=== PATIENT | female | born 1955 | race Asian ===

== ENCOUNTER 2016-08-08 19:27 | Emergency (ER) | payer BC, OTHER ==
[2016-08-08 20:30] VITALS: RESP 12
[2016-08-08] MEDS ORDERED: cloNIDine HCL 0.2 MG TAB PO STA (20:32)
--- NOTE | 2016-08-08 20:33 | ED ---
General Adult HPI - General Chief complaint: Recheck/Abnormal Lab/Rx Stated complaint: High BP Time Seen by Provider: 08/08/16 19:43 Source: patient, RN notes reviewed, old records reviewed Mode of arrival: ambulatory Limitations: no limitations - History of Present Illness Initial comments: This is a 60-year-old female ER for evaluation. The patient comes in via for evaluation of elevated blood pressure. Patient states she is happy to take her blood pressure earlier today noted to be high. Patient has history of high blood pressure, does take lisinopril patient took lisinopril prior to arrival. Patient's blood pressure during towards systolic currently 180 systolic. Patient denies any complaints, no headache chest pain shortness of breath or abdominal pain. - Related Data Home Medications Medication Instructions Recorded Confirmed Lisinopril [Prinivil] 10 mg PO BID 03/14/15 08/08/16 Pyridostigmine [place] [Mestinon] 8 tab PO DAILY 03/14/15 08/08/16 Ascorbic Acid [Vitamin C] 500 mg PO DAILY 08/08/16 08/08/16 Cyanocobalamin [Vitamin B-12] 500 mcg PO DAILY 08/08/16 08/08/16 Multivitamins, Thera [Multivitamin] 1 tab PO DAILY 08/08/16 08/08/16 Previous Rx's Medication Instructions Recorded Hydrochlorothiazide [Hydrodiuril] 25 mg PO DAILY #30 tab 08/08/16 Allergies Allergy/AdvReac Type Severity Reaction Status Date / Time No Known Allergies Allergy Verified 08/08/16 19:54 Review of Systems ROS Statement: Those systems with pertinent positive or pertinent negative responses have been documented in the HPI. ROS Other: All systems not noted in ROS Statement are negative. Past Medical History Past Medical History: Hypertension Additional Past Medical History / Comment(s): Myasthenia Gravis History of Any Multi-Drug Resistant Organisms: None Reported Past Surgical History: No Surgical Hx Reported Past Psychological History: No Psychological Hx Reported Smoking Status: Never smoker Past Alcohol Use History: None Reported Past Drug Use History: None Reported General Exam Limitations: no limitations General appearance: alert, in no apparent distress Head exam: Present: atraumatic, normocephalic, normal inspection Eye exam: Present: normal appearance, PERRL, EOMI. Absent: scleral icterus, conjunctival injection, periorbital swelling ENT exam: Present: normal exam, mucous membranes moist Neck exam: Present: normal inspection. Absent: tenderness, meningismus, lymphadenopathy Respiratory exam: Present: normal lung sounds bilaterally. Absent: respiratory distress, wheezes, rales, rhonchi, stridor Cardiovascular Exam: Present: regular rate, normal rhythm, normal heart sounds. Absent: systolic murmur, diastolic murmur, rubs, gallop, clicks GI/Abdominal exam: Present: soft, normal bowel sounds. Absent: distended, tenderness, guarding, rebound, rigid Extremities exam: Present: normal inspection, full ROM, normal capillary refill. Absent: tenderness, pedal edema, joint swelling, calf tenderness Back exam: Present: normal inspection Neurological exam: Present: alert, oriented X3, CN II-XII intact Psychiatric exam: Present: normal affect, normal mood Skin exam: Present: warm, dry, intact, normal color. Absent: rash Course Vital Signs 08/08/16 08/08/16 19:37 20:29 Temperature 97.3 F L Pulse Rate 73 65 Respiratory 18 12 Rate Blood Pressure 203/79 169/79 O2 Sat by Pulse 98 98 Oximetry - Reevaluation(s) Reevaluation #1: 08/08/16 20:53 Patient remains symptomatic no headache chest pain dizziness or is rather abdominal pain Medical Decision Making - Medical Decision Making 60 female here with hypertension, history of high blood pressure, 2 blood pressure Ines suicide come to ER for evaluation. Patient's blood pressures been anywhere from 200 to 180s systolic, improved now prior to discharge, will start on hydrochlorothiazide to follow with Dr. Carreno Clinical Impression: Hypertension, Uncontrolled hypertension Disposition: HOME SELF-CARE Condition: Good Instructions: Hypertension (ED) Prescriptions: Hydrochlorothiazide [Hydrodiuril] 25 mg PO DAILY #30 tab Referrals: Geneva Fam MD [Primary Care Provider] - 1-2 days
[2016-08-08 21:38] VITALS: BP 119/72; PULSE 75; TEMP 96.8
== END 2016-08-08 21:40 | disposition home or self-care (01) ==
LOC: EC 19:27
DX: I10 Essential (primary) hypertension (principal); Z79.899 Other long term (current) drug therapy; G70.00 Myasthenia gravis without (acute) exacerbation
CPT/HCPCS: 99283

== ENCOUNTER 2016-12-21 17:29 | Emergency (ER) | payer BC, OTHER ==
[2016-12-21 18:15] VITALS: PULSE 78; RESP 18; TEMP 98.1
--- NOTE | 2016-12-21 19:30 | ED ---
Recheck HPI - General Chief Complaint: Recheck/Abnormal Lab/Rx Stated Complaint: HTN Time Seen by Provider: 12/21/16 19:13 Source: patient, RN notes reviewed Mode of arrival: ambulatory Limitations: no limitations - History of Present Illness Initial Comments: Patient is 61-year-old female presents to the emergency room for evaluation of high blood pressure. Patient states she has a history of hypertension. Patient states she recently had her lisinopril increased from 10 mg daily to 25 mg per day. Patient states she wasn't sure why it was increased and has not contacted her primary care provider about it. Patient states that she has not began taking her increased dose and been continuing to take 10 mg a day. Patient states around 5 PM this afternoon, her blood pressure was 180/110. Patient states she was having a headache and slight dizziness. Patient's blood pressure on arrival 178/80. Patient denies any current headache or dizziness. Patient denies chest pain or shortness of breath. Patient has abdominal pain. Patient's nausea vomiting. Patient denies bilateral leg pain or swelling. Patient states she thought she should be evaluated for elevated blood pressure. - Related Data Home Medications Medication Instructions Recorded Confirmed Lisinopril [Prinivil] 10 mg PO BID 03/14/15 08/08/16 Pyridostigmine [place] [Mestinon] 8 tab PO DAILY 03/14/15 08/08/16 Ascorbic Acid [Vitamin C] 500 mg PO DAILY 08/08/16 08/08/16 Cyanocobalamin [Vitamin B-12] 500 mcg PO DAILY 08/08/16 08/08/16 Multivitamins, Thera [Multivitamin] 1 tab PO DAILY 08/08/16 08/08/16 Previous Rx's Medication Instructions Recorded Hydrochlorothiazide [Hydrodiuril] 25 mg PO DAILY #30 tab 08/08/16 Allergies Allergy/AdvReac Type Severity Reaction Status Date / Time No Known Allergies Allergy Verified 12/21/16 18:15 Review of Systems ROS Statement: Those systems with pertinent positive or pertinent negative responses have been documented in the HPI. ROS Other: All systems not noted in ROS Statement are negative. Past Medical History Past Medical History: Hyperlipidemia, Hypertension Additional Past Medical History / Comment(s): Myasthenia Gravis History of Any Multi-Drug Resistant Organisms: None Reported Past Surgical History: No Surgical Hx Reported Past Psychological History: No Psychological Hx Reported Smoking Status: Never smoker Past Alcohol Use History: None Reported Past Drug Use History: None Reported General Exam - General Exam Comments Initial Comments: Sitting in exam room, no acute distress. Limitations: no limitations General appearance: alert, in no apparent distress Head exam: Present: atraumatic, normocephalic, normal inspection Eye exam: Present: normal appearance ENT exam: Present: normal exam Neck exam: Present: normal inspection Respiratory exam: Present: normal lung sounds bilaterally. Absent: respiratory distress Cardiovascular Exam: Present: regular rate, normal rhythm, normal heart sounds GI/Abdominal exam: Present: soft, normal bowel sounds. Absent: distended, tenderness, guarding, rebound, rigid Extremities exam: Present: normal inspection Back exam: Present: normal inspection Neurological exam: Present: alert, oriented X3, CN II-XII intact, normal gait Psychiatric exam: Present: normal affect, normal mood Skin exam: Present: warm, dry, intact, normal color. Absent: rash Course Vital Signs 12/21/16 12/21/16 18:12 19:29 Temperature 98.1 F Pulse Rate 78 Respiratory 18 Rate Blood Pressure 178/80 160/80 O2 Sat by Pulse 98 Oximetry Medical Decision Making - Medical Decision Making Patient is 61-year-old female presents emergency room for evaluation of blood pressure recheck. Patient's blood pressure on arrival 178/80. Patient's blood pressure recheck 160/80. Discussed with patient that if she continues to have elevated blood pressure when she gets home to take another 10 mg lisinopril. Advised patient to begin taking 25 mg of lisinopril tomorrow as prescribed. Advised patient to follow-up with her primary care provider on Saturday if she has any questions regarding her blood pressure medications. Patient denies any symptoms at this time. Patient states she understands everything that was discussed with her. Return parameters discussed. Case discussed with Dr. Borrero. Disposition Clinical Impression: Blood pressure check Disposition: HOME SELF-CARE Condition: Good Instructions: Hypertension (ED) Additional Instructions: Take blood pressure medications as prescribed. Please follow up with primary care provider on Saturday. If any new symptom arises or symptoms worsen, return to ER as soon as possible. Referrals: Geneva Fam MD [Primary Care Provider] - 1-2 days Time of Disposition: 19:33
[2016-12-21 19:33] VITALS: BP 160/80
== END 2016-12-21 20:01 | disposition home or self-care (01) ==
LOC: EC 17:29
DX: I10 Essential (primary) hypertension (principal); G70.9 Myoneural disorder, unspecified; Z79.899 Other long term (current) drug therapy
CPT/HCPCS: 99283

== ENCOUNTER 2016-12-28 09:51 | Day surgery (SDC) | payer BC, OTHER ==
[2016-12-27 10:24] VITALS: BMI 22.6
[~2016-12-28 09:51] MED LIST: LACTATED RINGERS 1,000 ML IV SCH
[2016-12-28 10:38] VITALS: TEMP 98.1
[2016-12-28] MEDS ORDERED: LIDOCAINE 1% 20 ML VIAL (10MG/ML) FOR IV START INTRADERMA ONE (10:49)
[2016-12-28 10:59] LABS: Glucose,Whole Blood 87 mg/dL (75-99)
[2016-12-28] MEDS ORDERED: PROPOFOL 10 MG/ML 20 ML VIAL IV ONE (11:01)
--- NOTE | 2016-12-28 11:22 | P.PCN ---
Date of Procedure: 12/28/16 Preoperative Diagnosis: Postoperative Diagnosis: Procedure(s) Performed: BRIEF HISTORY: Patient is a 61-year-old pleasant 8 female, scheduled for an elective colonoscopy as a part of screening for colorectal neoplasia. She was recently noted to have a Hemoccult positive stool. PROCEDURE PERFORMED: Colonoscopy. PREOPERATIVE DIAGNOSIS: Screening for colon cancer/Hemoccult positive stool. IV sedation per Anesthesia. PROCEDURE: After informed consent was obtained, the patient, was brought into the endoscopy unit. IV sedation was administered by Anesthesia under continuous monitoring. Digital rectal examination was normal. Initially the Olympus CF- 160 flexible video colonoscope was then inserted in the rectum, gradually advanced into the cecum without any difficulty. Careful examination was performed as the scope was gradually being withdrawn. Ileocecal valve and the appendiceal orifice were visualized and appeared normal. Prep was excellent. Mucosa of the cecum, ascending colon, transverse colon, descending colon, sigmoid colon, and rectum appeared normal. Retroflexion was performed in the rectum and no lesions were seen. The patient tolerated the procedure well. IMPRESSION: Normal-appearing colon from rectum to cecum with no evidence of colorectal neoplasia.. RECOMMENDATIONS: Findings of this examination were discussed with the patient as well as her family. She was advised to have a repeat screening colonoscopy in 10 years.. Implants: Indications for Procedure: Operative Findings: Description of Procedure:
[2016-12-28 12:08] VITALS: BP 127/66; PULSE 70; RESP 18
== END 2016-12-28 12:26 | disposition home or self-care (01) ==
LOC: ORWHC2ENDO 09:51
PROVIDERS: ATTEND Internal Medicine Gastroenterology
DX: R19.5 Other fecal abnormalities (principal); I10 Essential (primary) hypertension; J45.909 Unspecified asthma, uncomplicated; F41.9 Anxiety disorder, unspecified; G70.00 Myasthenia gravis without (acute) exacerbation; K21.9 Gastro-esophageal reflux disease without esophagitis; Z79.52 Long term (current) use of systemic steroids; Z79.899 Other long term (current) drug therapy
CPT/HCPCS: 45378; J2704

== ENCOUNTER → 2017-09-13 | Outpatient (CLI) | payer BC, OTHER ==
--- NOTE | 2017-09-14 14:58 | CT ---
EXAMINATION TYPE: CT abdomen pelvis w con DATE OF EXAM: 09/13/2017 COMPARISON: NONE HISTORY: LLQ pain CT DLP: 942 mGycm CONTRAST: CT scan of the abdomen and pelvis is performed with Oral Contrast and with IV Contrast, patient injec olga with 100ml mL of Omnipaque 300. FINDINGS: LUNG BASES-: No visible nodule. No infiltrate. LIVER/GB: No calcified gallstones. No space occupying hepatic lesion. Biliary tree is of normal ca liber. PANCREAS: No inflammation. No distinct mass. SPLEEN: No splenic enlargement. No lesion seen. ADRENALS: No nodule. No thickening. KIDNEYS/BLADDER: No hydronephrosis. No nephrolithiasis. No distinct renal mass. Urinary bladder i s poorly distended. BOWEL: Normal appendix. Normal bowel caliber. No inflammation. GENITAL ORGANS: No gross abnormality. LYMPH NODES: No greater than 1cm abdominal or pelvic lymph nodes are appreciated. AORTA: No significant abnormality. OSSEOUS STRUCTURES: Generative changes L5-S1. OTHER: No significant additional abnormality is seen. IMPRESSION: 1. No significant abnormality to account for the patient's symptoms.
== END | disposition home or self-care (01) ==
LOC: RADCTMAIN 18:06
PROVIDERS: ATTEND Internal Medicine
DX: R10.32 Left lower quadrant pain (principal); R10.84 Generalized abdominal pain
CPT/HCPCS: 74177; Q9967

== ENCOUNTER → 2018-08-20 | Outpatient (CLI) | payer OTHER ==
--- NOTE | 2018-08-20 15:43 | US ---
EXAMINATION TYPE: US kidneys/renal and bladder DATE OF EXAM: 08/20/2018 COMPARISON: CT 09/13/17 CLINICAL HISTORY: R10.9 right flank pain. EXAM MEASUREMENTS: Right Kidney: 10.5 x 5.0 x 4.3 cm Left Kidney: 10.3 x 4.9 x 4.7 cm Post Void Residual Volume: 9.6 mL Right Kidney: No hydronephrosis or masses seen Left Kidney: No hydronephrosis or masses seen Bladder: wnl Bilateral Jets seen: Yes Normal Post Void Residual: Yes IMPRESSION: Normal renal ultrasound.
== END | disposition home or self-care (01) ==
LOC: RADUSWWP 14:48
PROVIDERS: ATTEND Internal Medicine
DX: R10.9 Unspecified abdominal pain (principal)
CPT/HCPCS: 76770

== ENCOUNTER → 2019-01-20 | Outpatient (CLI) | payer OTHER ==
--- NOTE | 2019-01-20 13:12 | XR ---
EXAMINATION TYPE: XR chest 2V DATE OF EXAM: 01/20/2019 COMPARISON: Prior chest x-ray 09/18/2018 HISTORY: Cough TECHNIQUE: Frontal and lateral views of the chest are obtained. FINDINGS: Prominent lung volumes suggest underlying COPD. Aorta is dense. Heart size within normal li mits. There is no focal air space opacity, pleural effusion, or pneumothorax seen. The cardiac silho uette size is within normal limits. Suspect there is a spinal curvature. There is eventration of th e left hemidiaphragm. The osseous structures are intact. IMPRESSION: No acute cardiopulmonary process.
== END | disposition home or self-care (01) ==
LOC: RADXRMAIN 12:23
PROVIDERS: ATTEND Internal Medicine
DX: R05 Cough (principal)
CPT/HCPCS: 71046

== ENCOUNTER → 2019-03-05 | Outpatient (CLI) | payer OTHER ==
[2019-03-05 16:09] LABS: ALT 89 U/L (8-44); AST 78 U/L (13-35); African American GFR (CKD) 129.4 (60.0-200.0); Albumin/Globulin Ratio 1.71 (1.60-3.17); Alkaline Phosphatase 83 U/L (41-126); Calcium 10.5 mg/dL (8.7-10.3); Carbon Dioxide 27.7 mmol/L (21.6-31.8); Chloride 108 mmol/L (96-109); Globulin 2.4 g/dL (1.6-3.3); Glucose 99 mg/dL (70-110); Non-African American GFR(CKD) 111.6 (60.0-200.0); Potassium 3.7 mmol/L (3.5-5.5); Prolactin 12.7 ng/mL (2.8-29.2); Sodium 144 mmol/L (135-145); Total Bilirubin 0.5 mg/dL (0.2-1.2); Total Protein 6.5 g/dL (6.2-8.2)
[2019-03-05 18:42] LABS: ACTH 12.7 pg/mL (0.00-45.99)
== END | disposition home or self-care (01) ==
LOC: LABWHC1 09:22
PROVIDERS: ATTEND Internal Medicine Endocrinology, Diabetes & Metabolism
DX: E05.90 Thyrotoxicosis, unspecified without thyrotoxic crisis or storm (principal); R53.83 Other fatigue
CPT/HCPCS: 36415; 80053; 82024; 82533; 84146; 84439; 84443; 84445; 84480

== ENCOUNTER → 2019-03-19 | Outpatient (CLI) | payer OTHER ==
[2019-03-20 13:49] LABS: Smooth Muscle Antibody 9 UNITS (<20)
== END | disposition home or self-care (01) ==
LOC: LABWHC1 13:56
PROVIDERS: ATTEND Psychiatry & Neurology Neurology
DX: G70.00 Myasthenia gravis without (acute) exacerbation (principal)
CPT/HCPCS: 36415; 83516; 83519

== ENCOUNTER → 2019-04-20 | Outpatient (CLI) | payer OTHER ==
[2019-04-20 16:29] LABS: T4, Free (Free Thyroxine) 0.3 ng/dL (0.80-1.80)
== END | disposition home or self-care (01) ==
LOC: LABWHC1 11:34
PROVIDERS: ATTEND Internal Medicine Endocrinology, Diabetes & Metabolism
DX: E05.90 Thyrotoxicosis, unspecified without thyrotoxic crisis or storm (principal)
CPT/HCPCS: 36415; 84439; 84443; 84480

== ENCOUNTER → 2019-05-15 | Outpatient (CLI) | payer OTHER ==
--- NOTE | 2019-05-15 13:10 | US ---
EXAMINATION TYPE: US abdomen limited DATE OF EXAM: 05/15/2019 COMPARISON: NONE CLINICAL HISTORY: R94.5 Abnormal results of liver function studies. EXAM MEASUREMENTS: Liver Length: 12.9 cm Gallbladder Wall: 0.2 cm CBD: 0.2 cm Right Kidney: 10.5 x 3.0 4.7 cm Pancreas: Obscured by bowel gas Liver: wnl Gallbladder: echogenic foci fundal, possible non shadowing stone versus sessile polyp, does not appe ar mobile Evidence for sonographic Go's sign: CBD: wnl Right Kidney: wnl IMPRESSION: 1. Homogeneous echotexture throughout the liver despite abnormal liver enzymes. 2. Sessile polyp versus nonshadowing small calculi in the gallbladder fundus. This measures approxima tely 4 mm. Annual surveillance with abdominal ultrasound is recommended for polyps of this size.
== END | disposition home or self-care (01) ==
LOC: RADUSWWP 11:42
PROVIDERS: ATTEND Internal Medicine
DX: R94.5 Abnormal results of liver function studies (principal)
CPT/HCPCS: 76705

== ENCOUNTER → 2019-06-01 | Outpatient (CLI) | payer OTHER ==
--- NOTE | 2019-06-02 11:58 | MM ---
Reason for exam: screening (asymptomatic). Last mammogram was performed 14 years ago. History: Patient is postmenopausal and had first child at age 33. Physical Findings: A clinical breast exam by your physician is recommended on an annual basis and results should be correlated with mammographic findings. MG Screening Mammo w CAD Bilateral CC and MLO view(s) were taken. Prior study comparison: March 01, 2017, mammogram. August 01, 2015, mammogram. May 18, 2005, bilateral screening mammogram w/CAD. July 08, 2003, left breast special view mammogram. The breast tissue is heterogeneously dense. This may lower the sensitivity of mammography. Benign appearing stable calcifications in the right breast. No suspicious abnormality. No significant changes when compared with prior studies. ASSESSMENT: Benign, BI-RAD 2 RECOMMENDATION: Routine screening mammogram of both breasts in 1 year.
== END | disposition home or self-care (01) ==
LOC: RADMAMWWP 11:03
PROVIDERS: ATTEND Internal Medicine
DX: Z12.31 Encounter for screening mammogram for malignant neoplasm of breast (principal)
CPT/HCPCS: 77067

== ENCOUNTER → 2019-06-08 | Outpatient (CLI) | payer OTHER ==
[2019-06-08 18:22] LABS: African American GFR (CKD) 107.6 (60.0-200.0); Albumin 4.4 g/dL (3.80-4.90); Albumin/Globulin Ratio 1.76 (1.60-3.17); Anion Gap 11.3 mmol/L (4.00-12.00); BUN/Creat Ratio 17.14 Ratio (12.00-20.00); Calcium 9.5 mg/dL (8.7-10.3); Carbon Dioxide 25.7 mmol/L (21.6-31.8); Globulin 2.5 g/dL (1.6-3.3); Potassium 4.2 mmol/L (3.5-5.5); Total Bilirubin 0.7 mg/dL (0.2-1.2); Total Protein 6.9 g/dL (6.2-8.2)
[2019-06-08 18:52] LABS: T4, Free (Free Thyroxine) 0.8 ng/dL (0.80-1.80)
== END | disposition home or self-care (01) ==
LOC: LABWHC1 11:23
PROVIDERS: ATTEND Internal Medicine Endocrinology, Diabetes & Metabolism
DX: E05.00 Thyrotoxicosis with diffuse goiter without thyrotoxic crisis or storm (principal)
CPT/HCPCS: 36415; 80053; 84439; 84443; 84445; 84480

== ENCOUNTER → 2019-08-31 | Outpatient (CLI) | payer OTHER ==
[2019-08-31 16:04] LABS: T4, Free (Free Thyroxine) 1.1 ng/dL (0.80-1.80)
== END ==
LOC: LABWHC1 11:16
PROVIDERS: ATTEND Internal Medicine Endocrinology, Diabetes & Metabolism
DX: E05.90 Thyrotoxicosis, unspecified without thyrotoxic crisis or storm (principal)
CPT/HCPCS: 36415; 84439; 84443; 84480

== ENCOUNTER → 2019-10-06 | Outpatient (CLI) | payer OTHER ==
[2019-10-06 17:35] LABS: T4, Free (Free Thyroxine) 1.2 ng/dL (0.80-1.80)
== END | disposition home or self-care (01) ==
LOC: LABWHC1 11:15
PROVIDERS: ATTEND Internal Medicine Endocrinology, Diabetes & Metabolism
DX: E05.90 Thyrotoxicosis, unspecified without thyrotoxic crisis or storm (principal)
CPT/HCPCS: 36415; 84439; 84443; 84480

== ENCOUNTER → 2020-02-17 | Outpatient (CLI) | payer OTHER ==
[2020-02-18 00:50] LABS: T4, Free (Free Thyroxine) 1.2 ng/dL (0.80-1.80)
== END | disposition home or self-care (01) ==
LOC: LABWHC1 13:09
PROVIDERS: ATTEND Internal Medicine Endocrinology, Diabetes & Metabolism
DX: E05.90 Thyrotoxicosis, unspecified without thyrotoxic crisis or storm (principal)
CPT/HCPCS: 36415; 84439; 84443; 84480

== ENCOUNTER → 2020-03-28 | Outpatient (CLI) | payer OTHER ==
[2020-03-28 19:29] LABS: T4, Free (Free Thyroxine) 1.2 ng/dL (0.80-1.80)
== END | disposition home or self-care (01) ==
LOC: LABWHC1 13:11
PROVIDERS: ATTEND Internal Medicine Endocrinology, Diabetes & Metabolism
DX: E05.90 Thyrotoxicosis, unspecified without thyrotoxic crisis or storm (principal)
CPT/HCPCS: 36415; 84439; 84443; 84480

== ENCOUNTER → 2020-12-28 | Outpatient (CLI) | payer OTHER ==
--- NOTE | 2020-12-29 11:14 | MM ---
Reason for exam: screening (asymptomatic). Last mammogram was performed 1 year and 7 months ago. History: Patient is postmenopausal and had first child at age 33. Physical Findings: A clinical breast exam by your physician is recommended on an annual basis and results should be correlated with mammographic findings. MG Screening Mammo w CAD Bilateral CC and MLO view(s) were taken. Prior study comparison: June 01, 2019, bilateral MG screening mammo w CAD. March 01, 2017, mammogram. The breast tissue is heterogeneously dense. This may lower the sensitivity of mammography. There are benign appearing round calcifications bilaterally. ASSESSMENT: Benign, BI-RAD 2 RECOMMENDATION: Routine screening mammogram of both breasts in 1 year.
--- NOTE | 2020-12-29 15:43 | BD ---
EXAMINATION TYPE: Axial Bone Density DATE OF EXAM: 12/28/2020 COMPARISON: 09.24.2014 CLINICAL HISTORY: 65 YR OLD FEMALE.....ICD-10 CODE: M81.0 DISORDER OF BONE, postmenopausal female Height: 59.7 Weight: 109 FRAX RISK QUESTIONS: Glucocorticoids (More than 3mos): YES (Ex: prednisone, prednisolone, methylprednisolone, dexamethasone, and hydrocortisone). Secondary Osteoporosis: YES 3. Menopause before 45: YES RISK FACTORS HISTORY OF: Postmenopausal woman: 45...? SPEECH IMPEDIMENT Hyperparathyroidism: UNKNOWN Adrenal Insufficiency: UNKNOWN MEDICATIONS: Prednisone or other steroids: YES, ASTHMA FOR YRS Thyroid Medications: YES, SYNTHROID, FOR YRS Osteoporosis Medications: FOSAMAX, FOR YRS Additional Medications: BP MEDS, REFLUX MEDS, MAIS GRAVIS MEDS, VIT D AND MULTIVITAMIN, Additional History: MAIS GRAVIS, REFLUX, HYPERTENSION, ASTHMA, OSTEOPOROSIS, THYROID EXAM MEASUREMENTS: Bone mineral densitometry was performed using the [employer] System. Bone mineral density as measured about the Lumbar spine is: ----- L1-L4(G/cm2): 1.036 T Score Values are as follows: ----- L1: -2.3 ----- L2: -2.4 ----- L3: -1.3 ----- L4: 0.3 ----- L1-L4: -1.2 Bone mineral density has: Increased 4.9% SINCE LAST STUDY....09.24.2014 Bone mineral density about the R hip (g/cm2): 0.771 Bone mineral density about the L hip (g/cm2): 0.782 T Score values are as follows: -----R Neck: -2.3 -----L Neck: -2.5 -----R Total: -1.9 -----L Total: -1.8 Bone mineral density has: Decreased -1.0 % SINCE LAST STUDY.....09.24.2014 FRAX%s: THERE IS A 11.0% CHANCE FOR A MAJOR OSTEOPOROTIC FX AND A 2.8% FOR HIP.....PROBABILITY FOR FX IN 10 YRS TIME IMPRESSION: Osteopenia (T Score between -2.5 and -1) remains present. There remains slightly increased risk of fracture and the patient may be considered for treatment. Re-Screen 2-5 years. NOTE: T-SCORE=SD OF THE YOUNG ADULT MEAN.
== END | disposition home or self-care (01) ==
LOC: RADBDWWP 12:01
PROVIDERS: ATTEND Internal Medicine
DX: Z12.31 Encounter for screening mammogram for malignant neoplasm of breast (principal); Z13.820 Encounter for screening for osteoporosis; M85.89 Other specified disorders of bone density and structure, multiple sites; Z78.0 Asymptomatic menopausal state
CPT/HCPCS: 77067; 77080

== ENCOUNTER → 2021-02-03 | Outpatient (CLI) | payer OTHER ==
--- NOTE | 2021-02-03 15:06 | US ---
EXAMINATION TYPE: US kidneys/renal and bladder DATE OF EXAM: 02/03/2021 COMPARISON: US 2019 08/20/2018 CLINICAL HISTORY: R10.9 SHAHEEN FLANK PAIN. EXAM MEASUREMENTS: Right Kidney: 10.2 x 4.2 x 4.5cm 101 mL (117 mL volume previously). Left Kidney: 8.9 x 4.0 x 4.4cm this is small. 82 mL volume (123 mL volume previously). Right Kidney: No hydronephrosis or shadowing renal calculi seen Left Kidney: No hydronephrosis or shadowing renal calculi seen Bladder: wnl Bilateral Jets seen: no No hydronephrosis or shadowing renal calculi. The urinary bladder is anechoic. The ureteral jets are not visualized. IMPRESSION: 1. No hydronephrosis or shadowing renal calculi. 2. Small left kidney. 82 mL volume. Previous volume was 123.5 mL. 3. Bilateral ureteral jets are not visualized.
== END | disposition home or self-care (01) ==
LOC: RADUSWWP 14:13
PROVIDERS: ATTEND Internal Medicine
DX: N27.0 Small kidney, unilateral (principal); R10.9 Unspecified abdominal pain
CPT/HCPCS: 76770

== ENCOUNTER → 2021-04-28 | Outpatient (CLI) | payer OTHER ==
--- NOTE | 2021-04-28 16:21 | XR ---
EXAMINATION TYPE: XR thoracic spine complete DATE OF EXAM: 04/28/2021 CLINICAL HISTORY: Mid back pain. TECHNIQUE: Frontal, lateral, and swimmer's view of thoracic spine are obtained. COMPARISON: None. FINDINGS: Thoracic spine show levoconvex scoliosis centered mid thoracic spine without evidence of ac binta fracture or dislocation. Vertebral body heights are preserved. Mild to moderate multilevel disc space narrowing and anterior lateral spurring centered mid thoracic spine. Visualized ribs are intact bilaterally. Elevated and eventrated posterior aspect left hemidiaphragm is partially imaged. IMPRESSION: As above.
== END | disposition home or self-care (01) ==
LOC: RADXRMAIN 15:58
PROVIDERS: ATTEND Internal Medicine
DX: M51.34 Other intervertebral disc degeneration, thoracic region (principal); M41.84 Other forms of scoliosis, thoracic region
CPT/HCPCS: 72072

== ENCOUNTER → 2022-03-16 | Outpatient (CLI) | payer OTHER ==
--- NOTE | 2022-03-19 08:41 | MM ---
Reason for Exam: Screening (asymptomatic). Last mammogram was performed 1 year(s) and 3 month(s) ago. Patient History: Menarche at age 13. First Full-Term at age 33. Late child-bearing (after 30). Postmenopausal. Risk Values: Bee 5 year model risk: 2.3%. NCI Lifetime model risk: 8.6%. Prior Study Comparison: 03/01/2017 Screening Mammogram, Unknown. 06/01/2019 Bilateral Screening Mammogram, [facility]. 12/28/2020 Bilateral Screening Mammogram, [facility]. Tissue Density: The breast tissue is heterogeneously dense. This may lower the sensitivity of mammography. Findings: Analyzed By CAD. There is no suspicious group of microcalcifications or new suspicious mass in either breast. Benign appearing round calcifications bilaterally. No significant change from prior exams. Overall Assessment: Benign, BI-RAD 2 Management: Screening Mammogram of both breasts in 1 year. A clinical breast exam by your physician is recommended on an annual basis and results should be correlated with mammographic findings. Electronically signed and approved by: Arslan García D.O.
== END | disposition home or self-care (01) ==
LOC: RADMAMWWP 13:20
PROVIDERS: ATTEND Internal Medicine
DX: Z12.31 Encounter for screening mammogram for malignant neoplasm of breast (principal); Z78.0 Asymptomatic menopausal state
CPT/HCPCS: 77067

== ENCOUNTER → 2022-11-29 | Outpatient (CLI) | payer MEDICARE, OTHER ==
--- NOTE | 2022-11-29 13:51 | US ---
EXAMINATION TYPE: US thyroid st tissue head/neck DATE OF EXAM: 11/29/2022 COMPARISON: NONE CLINICAL INDICATION: Female, 66 years old with history of E04.1 THYROID NODULE; dysphagia. On thyroi d meds. GLAND SIZE: Right Lobe: 4.5 x 1.5 x 2.2 cm Overall Parenchyma: heterogenous Left Lobe: 4.0 x 1.6 x 1.4 cm Overall Parenchyma: heterogeneous Isthmus Thickness: 0.2 cm NODULES RIGHT: # of nodules measured on right: 1 1. 0.6 X 0.5 x 0.6 cm, lower mid, solid or almost completely solid, hyperechoic TR 3 nodule, which is taller than wide, with ill-defined margins, without echogenic foci. Prior size: No prior LEFT: # of nodules measured on left: 2 1. 0.9 X 0.8 x 0.7 cm, lower lateral, solid or almost completely solid, isoechoic TR 3 nodule, whic h is wider than tall, with ill-defined margins, without echogenic foci. Prior size: No prior 2. 0.8 X 0.8 x 0.6 cm, lower mid, mixed cystic and solid, isoechoic TR 3 nodule, which is wider th an tall, with ill-defined margins, without echogenic foci. Prior size: No prior ISTHMUS: # of nodules measured in the isthmus: 0 Bilateral neck scanned, no evidence of lymphadenopathy. IMPRESSION: A few TR 3 nodules in the thyroid lobes measuring up to 9 mm. Follow-up can be performed. TR 3 nodule s would warrant sampling at 2.5 cm.
== END | disposition home or self-care (01) ==
LOC: RADUSWWP 08:12
PROVIDERS: ATTEND Psychiatry & Neurology Neurology
DX: E04.2 Nontoxic multinodular goiter (principal)
CPT/HCPCS: 76536

== ENCOUNTER → 2023-06-12 | Outpatient (CLI) | payer MEDICARE ==
--- NOTE | 2023-06-12 10:45 | BD ---
EXAMINATION TYPE: Axial Bone Density DATE OF EXAM: 06/12/2023 CLINICAL HISTORY: 67 years old Female. ICD-10 CODE: M81.0 OSTEOPOROSIS Height: 59.25 Weight: 101 FRAX RISK QUESTIONS: Glucocorticoids (More than 3mos): yes (Ex: prednisone, prednisolone, methylprednisolone, dexamethasone, and hydrocortisone). Secondary Osteoporosis: yes 2. Hyperthyroidism: yes RISK FACTORS HISTORY OF: Family History of Osteoporosis: no Active: yes Diet low in dairy products/other sources of calcium: no Postmenopausal woman: yes Lost more than 2 inches in height since high school: no Frequent falls: no Poor Health: no MEDICATIONS: Prednisone or other steroids: yes How Long: Osteoporosis Medications: yes Which medication: Fosamax How Lon years Additional Medications: yes myasthenia gravis meds, hpb meds Additional History: yes myasthenia gravis 2002 EXAM MEASUREMENTS: Bone mineral densitometry was performed using the [employer] System. Bone mineral density as measured about the Lumbar spine is: ----- L1-L4(G/cm2): 1.011 T Score Values are as follows: ----- L1: -2.1 ----- L2: -2.2 ----- L3: -1.7 ----- L4: -0.2 ----- L1-L4: -1.4 Z Score Values are as follows: ----- L1: 0.1 ----- L2: 0.1 ----- L3: 0.5 ----- L4: 2.0 ----- L1-L4: 0.8 Bone mineral density has: Decreased -2.4% since study of: 12/28/2020 Bone mineral density about the R hip (g/cm2): 0.729 Bone mineral density about the L hip (g/cm2): 0.759 T Score values are as follows: -----R Neck: -2.8 -----L Neck: -2.9 -----R Total: -2.2 -----L Total: -2.0 Z Score values are as follows: -----R Neck: -0.8 -----L Neck: -0.9 -----R Total: -0.5 -----L Total: -0.3 Bone mineral density has: Decreased -4.1% since study of: 12/28/2020 FRAX%s: The graph provided illustrates a 13.5% chance for a major osteoporotic fx and a 4.4% chance f or the hips probability for fx in 10 years time. IMPRESSION: Osteoporosis (T Score less than -2.5). There is increased fracture risk and therapy is usually indicated based on age. Re-Screen 1-2 years. NOTE: T-SCORE=SD OF THE YOUNG ADULT MEAN.
--- NOTE | 2023-06-13 09:26 | MM ---
Reason for Exam: Screening (asymptomatic). Last mammogram was performed 1 year(s) and 3 month(s) ago. Patient History: Menarche at age 13. First Full-Term at age 33. Late child-bearing (after 30). Postmenopausal. Risk Values: Bee 5 year model risk: 1.1%. NCI Lifetime model risk: 4.7%. Prior Study Comparison: 06/01/2019 Bilateral Screening Mammogram, [facility]. 12/28/2020 Bilateral Screening Mammogram, [facility]. 03/16/2022 Bilateral MG screening mammo w CAD, [facility]. Tissue Density: The breast tissue is heterogeneously dense. This may lower the sensitivity of mammography. Findings: Analyzed By CAD. Pattern appears symmetrical and stable. No significant interval change is evident. Couple of punctate calcifications may be within the left breast. Within the left breast there are 2 pair of adjacent punctate calcifications. At the more posterior grouping some very faint ill-defined fine calcifications may also be adjacent. Additional workup is recommended with magnification views. These are located 3.5 cm from the nipple upper outer quadrant. Left breast: No suspicious groups of microcalcifications, spiculated or lobular masses, architectural distortion or other secondary signs of malignancy are mammographically apparent. Overall Assessment: Incomplete: need additional imaging evaluation, BI-RAD 0 Management: Diagnostic Mammogram of the right breast. A negative mammogram report should not preclude additional follow up of suspicious palpable abnormalities. Patient should continue monthly self breast exam. A clinical breast exam by your physician is recommended on an annual basis and results should be correlated with mammographic findings. Electronically signed and approved by: Manolo Macias D.O. Radiologis
== END | disposition home or self-care (01) ==
LOC: RADMAMWWP 09:37
PROVIDERS: ATTEND Internal Medicine
DX: Z12.31 Encounter for screening mammogram for malignant neoplasm of breast (principal); M81.0 Age-related osteoporosis without current pathological fracture; M85.89 Other specified disorders of bone density and structure, multiple sites; Z78.0 Asymptomatic menopausal state
CPT/HCPCS: 77063; 77067; 77080

== ENCOUNTER → 2023-07-04 | Outpatient (CLI) | payer MEDICARE ==
--- NOTE | 2023-07-04 10:23 | MM ---
Reason for Exam: Additional evaluation requested from abnormal screening. Last screening mammogram was performed less than 1 month ago. Patient History: Menarche at age 13. First Full-Term at age 33. Late child-bearing (after 30). Postmenopausal. Risk Values: Bee 5 year model risk: 1.1%. NCI Lifetime model risk: 4.7%. Prior Study Comparison: 08/01/2015 Screening Mammogram, Unknown. 06/01/2019 Bilateral Screening Mammogram, [facility]. 12/28/2020 Bilateral Screening Mammogram, [facility]. 03/16/2022 Bilateral MG screening mammo w CAD, [facility]. 06/12/2023 Bilateral MG 3D screening mammo w/cad, [facility]. Tissue Density: Right: The breast tissue is heterogeneously dense. This may lower the sensitivity of mammography. Findings: Analyzed By CAD. Stable multiple calcifications dating back to 2002 as well as chronic nodularity. No suspicious group seen. Overall Assessment: Benign, BI-RAD 2 Management: Screening Mammogram of both breasts in 1 year. . Results were given to the patient verbally at the time of exam. Patient should continue monthly self-breast exams. A clinical breast exam by your physician is recommended on an annual basis. This exam should not preclude additional follow-up of suspicious palpable abnormalities. Note on Bee scores and lifetime risk: 1. A Bee score greater than 3% is considered moderate risk. If this is the case, consider specialist referral to assess eligibility for a risk reducing agent. 2. If overall lifetime risk for the development of breast cancer is 20% or higher, the patient may qualify for future screening with alternating mammogram and breast MRI. Electronically signed and approved by: Billy Early M.D. Radiologis
== END | disposition home or self-care (01) ==
LOC: RADMAMWWP 09:33
PROVIDERS: ATTEND Internal Medicine
DX: R92.331 Mammographic heterogeneous density, right breast (principal); R92.1 Mammographic calcification found on diagnostic imaging of breast; Z78.0 Asymptomatic menopausal state
CPT/HCPCS: 77065; G0279; 77061

== ENCOUNTER → 2023-12-26 | Outpatient (CLI) | payer MEDICARE ==
--- NOTE | 2023-12-26 17:31 | XR ---
EXAMINATION TYPE: XR thoracic spine complete DATE OF EXAM: 12/26/2023 COMPARISON: 04/28/2021 HISTORY: Back pain TECHNIQUE: 3 view thoracic spine FINDINGS: Mild scoliosis is present with convexity to the left centered at approximately T6. Findings stable from comparison. There are 12 thoracic type vertebral bodies. Pedicles are intact. Mild spond ylosis is present within the mid thoracic spine. Vertebral body heights are preserved. IMPRESSION: 1. Mild scoliosis. 2. No suspicious acute osseous abnormality.
== END | disposition home or self-care (01) ==
LOC: RADXRMAIN 09:18
PROVIDERS: ATTEND Internal Medicine
DX: M41.84 Other forms of scoliosis, thoracic region (principal)
CPT/HCPCS: 72072

== ENCOUNTER → 2024-07-30 | Outpatient (CLI) | payer MEDICARE ==
--- NOTE | 2024-08-03 17:20 | MM ---
Reason for Exam: Screening (asymptomatic). Last mammogram was performed 1 year(s) and 1 month(s) ago. Patient History: Menarche at age 13. First Full-Term at age 33. Late child-bearing (after 30). Postmenopausal. Risk Values: Bee 5 year model risk: 1.1%. NCI Lifetime model risk: 4.5%. Prior Study Comparison: 03/16/2022 Bilateral MG screening mammo w CAD, [facility]. 06/12/2023 Bilateral MG 3D screening mammo w/cad, [facility]. 07/04/2023 Right MG 3D work up w/cad RT, [facility]. Tissue Density: The breasts are heterogeneously dense, which may obscure small masses. Findings: Analyzed By CAD. Unchanged bilateral areas of asymmetric density. There is no suspicious group of microcalcifications or new suspicious mass in either breast. Overall Assessment: Benign, BI-RAD 2 Management: Screening Mammogram of both breasts in 1 year. . Patient should continue monthly self-breast exams. A clinical breast exam by your physician is recommended on an annual basis. This exam should not preclude additional follow-up of suspicious palpable abnormalities. Note on Bee scores and lifetime risk: 1. A Bee score greater than 3% is considered moderate risk. If this is the case, consider specialist referral to assess eligibility for a risk reducing agent. 2. If overall lifetime risk for the development of breast cancer is 20% or higher, the patient may qualify for future screening with alternating mammogram and breast MRI. [facility], , 08/03/2024 5:17 PM. Electronically signed and approved by: Carolina Sullivan M.D. Radiologist
== END | disposition home or self-care (01) ==
LOC: RADMAMWWP 10:03
PROVIDERS: ATTEND Internal Medicine
DX: Z12.31 Encounter for screening mammogram for malignant neoplasm of breast (principal); Z78.0 Asymptomatic menopausal state; R92.333 Mammographic heterogeneous density, bilateral breasts
CPT/HCPCS: 77063; 77067

== ENCOUNTER → 2024-10-01 | Outpatient (CLI) | payer MEDICARE ==
--- NOTE | 2024-10-01 09:42 | US ---
EXAMINATION TYPE: US abdomen complete DATE OF EXAM: 10/01/2024 COMPARISON: 02/03/2021 Renal 05/15/2019 Abdomen limited CLINICAL INDICATION: Female, 68 years old with history of R10.84 GENERAL ABD PAIN; Epigastric pain, p atient denies any other signs, symptoms, or relevant history TECHNIQUE: Grayscale and color Doppler imaging of the abdomen was performed. FINDINGS: EXAM MEASUREMENTS: Liver Length: 11.6 cm Gallbladder Wall: 0.2 cm CBD: 0.3 cm, color Doppler imaging was utilized to isolate the common bile duct for measurement. Spleen: Limited visualization / not able to insoniate due to patient body habitus cm Right Kidney: 9.7 x 3.5 x 5.1 cm Left Kidney: 9.3 x 4.2 x 4.6 cm QUALITY CONTROL ASSESSOR NOTES: Difficult exam due to patients small body habitus Pancreas: wnl Liver: wnl, no dilated ducts, masses or cysts. Gallbladder: ? Posterior wall in LLD - adjacent bowel vs gravel like stones vs debris Evidence for sonographic Go's sign: No CBD: wnl Spleen: Obscured by overlying bowel gas Right Kidney: wnl, No hydronephrosis, calculi or masses seen Left Kidney: wnl, No hydronephrosis, calculi or masses seen Upper IVC: wnl Abd Aorta: wnl IMPRESSION: There appears to be cholelithiasis present. [facility], , 10/01/2024 9:39 AM
== END | disposition home or self-care (01) ==
LOC: RADUSWWP 08:54
PROVIDERS: ATTEND Internal Medicine
DX: K80.20 Calculus of gallbladder without cholecystitis without obstruction (principal)
CPT/HCPCS: 76700

== ENCOUNTER 2025-02-18 14:46 | Emergency (ER) | payer MEDICARE ==
[2025-02-18 14:57] VITALS: TEMP 98.3
--- NOTE | 2025-02-18 15:12 | ED ---
General Adult HPI - General Chief complaint: Extremity Injury, Lower Stated complaint: Fall/L Foot Swelling Time Seen by Provider: 02/18/25 15:00 Source: patient, family Mode of arrival: wheelchair Limitations: no limitations - History of Present Illness Initial comments: Past medical history of myasthenia gravis who came for left foot pain today. This morning she missed a step walking down the steps and landed on her left foot inverted inverted. Denies pain at rest but endorses pain with weightbearing. States she is unable to bear weight due to the pain. They called her primary care doctor's office but they sent her to the ER for an x- ray. No pain meds prior to arrival. No allergies. Notes swelling and bruising left lateral foot. Denies additional injury. Did not fall or hit her head. Is not on blood thinner - Related Data Home Medications Medication Instructions Recorded Confirmed Pyridostigmine [place] [Mestinon] 480 mg PO 0900 03/14/15 12/28/16 Multivitamins, Thera [Multivitamin] 1 tab PO DAILY 08/08/16 12/28/16 ALPRAZolam [Xanax] 0.25 mg PO Q12H PRN 12/21/16 12/28/16 Alendronate Sodium [Fosamax] 70 mg PO MO 12/21/16 12/28/16 Cholecalciferol [Vitamin D3] 1,000 unit PO DAILY 12/21/16 12/28/16 Lisinopril-Hctz 20-25 mg 1 tab PO DAILY 12/21/16 12/28/16 [Zestoretic 20-25] Menthol [Bengay] 1 applic TOPICAL DAILY PRN 12/21/16 12/28/16 Methyl Salicylate/Menthol 1 patch TOPICAL HS 12/21/16 12/28/16 [Salonpas Patch] predniSONE 10 mg PO 1200 12/27/16 12/28/16 Allergies Allergy/AdvReac Type Severity Reaction Status Date / Time No Known Allergies Allergy Verified 12/28/16 10:41 Review of Systems ROS Statement: Those systems with pertinent positive or pertinent negative responses have been documented in the HPI. ROS Other: All systems not noted in ROS Statement are negative. Past Medical History Past Medical History: Hyperlipidemia, Hypertension Additional Past Medical History / Comment(s): Myasthenia Gravis History of Any Multi-Drug Resistant Organisms: None Reported Past Surgical History: No Surgical Hx Reported Past Psychological History: No Psychological Hx Reported Past Alcohol Use History: None Reported Past Drug Use History: None Reported General Exam - General Exam Comments Initial Comments: PE: CONSTITUTIONAL: No apparent distress, well appearing SKIN: Warm, dry, no jaundice, hives or petechiae, bruising along lateral left foot EYES: Pupils are equally round, extraocular movements intact without nystagmus, clear conjunctiva, non-icteric sclera HENT: Normocephalic, atraumatic, moist mucus membranes, oropharynx clear without exudates NECK: , Full range of motion, normal appearance PULMONARY: Clear to auscultation without wheezes, rhonchi, or rales, normal excursion, no accessory muscle use and no stridor CARDIOVASCULAR: Regular rate, rhythm, normal S1 and S2. No appreciated murmurs, rubs or gallops. Strong radial pulses with intact distal perfusion. No lower extremity edema GASTROINTESTINAL: Soft, active bowel sounds throughout, non-tender, non- distended, no palpable masses, no rebound or guarding. No hepatosplenomegaly GENITOURINARY: MUSCULOSKELETAL: + bruising, tenderness palpation lateral left foot without deformity, no tenderness to palpation of the plantar aspect of the foot, extremity is neurovascularly intact with 2+ DP pulse, no bony TTP or deformity at the ankle, pain with inversion of foot, though able to move entire extremity through full ROM there is some left thigh tenderness to palpation, no bruising no hip TTP, patient states she think she may have pulled a muscle when she landed with her left ankle, proximal to left foot, remainder of LLE appears atraumatic, remaining extremities are atraumatic NEUROLOGIC:_a/o x 3, GCS 15, normal mentation and speech. Moves all extremities x 4 without motor or sensory deficit PSYCHIATRIC:_normal mood and affect, thought process is clear and linear Limitations: no limitations Course Vital Signs 02/18/25 02/18/25 14:54 17:19 Temperature 98.3 F Pulse Rate 71 86 Respiratory 20 18 Rate Blood Pressure 160/78 149/86 O2 Sat by Pulse 97 98 Oximetry Procedures - Orthopedic Splinting/Casting Injury #1 Side: left Lower Extremity Injury Location: short leg, ankle, foot Lower Extremity Immobilizer: posterior splint Other Orthopedic Equipment: crutches Additional Comments: Post-splint check showed extremity neurovascularly intact Medical Decision Making - Medical Decision Making Was pt. sent in by a medical professional or institution (JUSTIN Gómez, SIZING MACHINE OPERATOR, urgent care, hospital, or long-term...) When possible be specific @ -No Did you speak to anyone other than the patient for history (EMS, parent, family, police, friend...)? What history was obtained from this source @ -No Did you review nursing and triage notes (agree or disagree)? Why? @ -I reviewed nursing and triage notes Were old charts reviewed (outside hosp., previous admission, EMS record, old EKG, old radiological studies, urgent care reports/EKG's, long-term records)? Report findings @ -Medical records reviewed Differential Diagnosis (chest pain, altered mental status, abdominal pain women, abdominal pain men, vaginal bleeding, weakness, fever, dyspnea, syncope, headache, dizziness, GI bleed, back pain, seizure, CVA, palpatations, mental health, musculoskeletal)? @ -[Differential Musculoskeletal Muscular strain, contusion, ligament sprain, fracture, arthritis, septic arthritis, bursitis, cellulitis, muscle spasm, nerve compression, DVT, arterial occlusion, herpes zoster, electrolyte abnormality, tumor.... This is not meant to be in all inclusive list EKG interpreted by me (3pts min.). @ -As above X-rays interpreted by me (1pt min.). @ -[Personally reviewed x-ray femur, I see no evidence of fracture or dislocation, reviewed x-ray ankle I see no evidence of fracture or dislocation at the ankle joint however on review of foot x-ray, shows oblique fracture of the fifth metatarsal, appears essentially nondisplaced agree with radiologist interpretation CT interpreted by me (1pt min.). @ -None done U/S interpreted by me (1pt. min.). @ -None done What testing was considered but not performed or refused? (CT, X-rays, U/S, labs)? Why? @ -None What meds were considered but not given or refused? Why? @ -None Did you discuss the management of the patient with other professionals (professionals i.e. JUSTIN Gómez, SIZING MACHINE OPERATOR, lab, RT, psych nurse, social organization professor, manager food safety, teacher, commanding officer homicide squad, pillowcase maker)? Give summary @ -No Was smoking cessation discussed for >3mins.? @ -No Was critical care preformed (if so, how long)? @ -No Were there social determinants of health that impacted care today? How? (Homelessness, low income, unemployed, alcoholism, drug addiction, transportation, low edu. Level, literacy, decrease access to med. care, skilled nursing, rehab)? @ -No Was there de-escalation of care discussed even if they declined (Discuss DNR or withdrawal of care, Hospice)? @ -No What co-morbidities impacted this encounter? (DM, HTN, Smoking, COPD, CAD, Cancer, CVA, ARF, Chemo, Hep., AIDS, mental health diagnosis, sleep apnea, morbid obesity)? @ -None Was patient admitted / discharged? Hospital course, mention meds given and route, prescriptions, significant lab abnormalities, going to OR and other pertinent info. @ -Discharged-Patient is a pleasant 69-year-old female history myasthenia gravis presenting for left foot pain after inverting her left foot after missing a step today. Mildly hypertensive on arrival. Remaining vital signs stable. Bruising and tenderness of left lateral foot. Able to range full range of motion. Plan for plain films of the ankle and foot. Additionally we will obtain x-ray left femur due to tenderness palpation. Patient suspect this pain is secondary to muscular pain after inverting her left ankle and injuring it. Personally reviewed plain films, proximal fifth metatarsal fracture noted. Impression read significant for oblique fracture at the fifth metatarsal base with minimal 1.5 mm of diastases and intra-articular extension into the fifth TMT joint. Additionally "tiny type I accessory navicular" . Pt will be placed in posterior short leg splint and nonweightbearing. Updated patient and son to findings. We discussed signs symptoms to monitor for warranting return to the ER such as numbness, uncontrolled pain, swelling or pale or blue color or dusky color of her feet. Pt preferred to follow-up with Dr. Ward. All questions were answered and patient was discharged in good condition. In my medical judgment there is currently no evidence of an immediate life- threatening or surgical condition. Discharge is therefore indicated at this time. Discharge treatment instructions, follow up instructions, and appropriate emergency department return precautions were discussed with the patient and/or medical decision maker. Patient and/or medical decision maker expressed understanding of and agreed with the treatment plan, follow up instructions, and emergency department return precaution. All patient's and/or medical decision maker's questions were answered. The patient was advised that a small risk still exists that a serious condition could develop and was therefore instructed to return to the ED for any changes in symptoms, persistent symptoms, inability to obtain proper follow-up or for any further concerns. Patient received verbal and written instructions for this condition. Undiagnosed new problem with uncertain prognosis? @ -No Drug Therapy requiring intensive monitoring for toxicity (Heparin, Nitro, Insulin, Cardizem)? @ -No Were any procedures done? @ -No Diagnosis/symptom? @Fifth metatarsal fracture Acute, or Chronic, or Acute on Chronic? @ -Acute Uncomplicated (without systemic symptoms) or Complicated (systemic symptoms)? @Uncomplicated Side effects of treatment? @ -No Exacerbation, Progression, or Severe Exacerbation? @ -No Poses a threat to life or bodily function? How? (Chest pain, [place], [place], pneumonia, PE, COPD, DKA, ARF, appy, cholecystitis, CVA, Diverticulitis, Homicidal, Suicidal, threat to staff... and all critical care pts) @ -No Disposition Clinical Impression: Fracture of fifth metatarsal bone of left foot Disposition: HOME SELF-CARE Condition: Good Instructions (If sedation given, give patient instructions): Foot Fracture in Adults (ED) Additional Instructions: Every disease is a spectrum and a small chance still exists that a serious condition could develop, for this reason, please monitor yourself closely for new, changing or worsening symptoms, uncontrolled pain, swelling to the point where splint is painful or too tight, decrease sensation/numbness in your foot, pale or blue color of your toes, fever, inability to tolerate/keep down fluids or your medications, inability to follow up with outpatient providers as instructed and should you experience these symptoms or should you have any further concerns for your wellbeing please return to the ED or call 911 immediately. Your pain can be treated with ibuprofen and acetaminophen. You can take up to 400-600 mg of ibuprofen (Advil, Motrin) 3 times daily (every 8 hours) but can also use lower doses if this relieves your pain. Some people prefer naproxen (Aleve, Naprosyn) which can be taken in doses of 500 mg up to twice a day. Do not take both of these medicines together, and do not combine either with ketorolac (Toradol), meloxicam (Mobic), or indomethacin (Tivorbex). Some people can develop stomach discomfort with higher doses of either ibuprofen or naproxe n, if this develops decrease your dose or stop taking it. If you need to take this dose daily for more than a week, please schedule an appointment for re- evaluation with your PCP. Please take these medications with food. You can take up to 1000 mg of acetaminophen (Tylenol) every 6 hours. Be careful as this is included in some medicines like Nyquil, Line [place], Percocet, Vicodin, STANBACK, Goody's Powders, and Excedrin. You can also use lidocaine patches for topical pain. You can purchase 4% patches over the counter at most drug stores. These can be helpful for pain from your muscles or bones. Please do not walk on your affected foot until you see the orthopedic surgeon for further direction. Please follow-up with orthopedic surgeon, Dr. Ward within 1 week. PLEASE call your primary care physician as soon as possible to arrange / discuss plan for followup appointment. Appointment in the next 1-3 days is strongly encouraged if possible. PLEASE let us know here before you leave if there is anything further we can do to be of any assistance. Take care and feel Better! Is patient prescribed a controlled substance at d/c from ED?: No Referrals: Geneva Fam MD [Primary Care Provider] - 1-2 days Akira Ward MD [STAFF PHYSICIAN] - 1-2 days
[2025-02-18] MEDS: ACETAMINOPHEN TAB 325 MG TAB PO STA (15:15)
[2025-02-18] MEDS: IBUPROFEN 600 MG TAB PO STA (15:16)
--- NOTE | 2025-02-18 15:49 | XR ---
EXAMINATION TYPE: XR femur LT DATE OF EXAM: 02/18/2025 3:39 PM COMPARISON: None CLINICAL INDICATION: Female, 69 years old with history of missed a step, left ft pain, L lat thigh pa in; PHH, pain TECHNIQUE: XR femur LT examined in Frontal and lateral projections. FINDINGS: No evidence of acute osseous pathology, joint dislocation, or soft tissue swelling. Modera te osteophyte formations of the superior acetabulum. Mild joint space narrowing. IMPRESSION: 1. No acute osseous pathology. 2. Mild degeneration changes of the hip. [facility], , 02/18/2025 3:47 PM
--- NOTE | 2025-02-18 16:02 | XR ---
EXAMINATION TYPE: XR ankle complete 3 views LT, XR foot complete 3 views LT DATE OF EXAM: 02/18/2025 3:38 PM COMPARISON: None CLINICAL INDICATION: Female, 69 years old with history of inverted ft when stepping down, pain latera l foot; PHH, pain FINDINGS: Ankle: Ankle mortise is congruent with preservation of the distal tibiofibular overlap. Talar dome is intact . Mild anterior soft tissue swelling. Small delineation to the Achilles tendon. Small posterior and p lantar heel spurs. Subtalar joint align. Foot: There is an oblique fracture at the base of the fifth metatarsal with minimal 1.5 mm of diastases and intra-articular extension into the fifth TMT joint. Tiny type I accessory navicular. Otherwise, no a cute fracture, subluxation, dislocation seen. IMPRESSION (ankle and foot): 1. Oblique fracture base of the fifth metatarsal with minimal 1.5 mm of diastases and intra-articular extension into the fifth TMT joint. 2. No additional acute osseous abnormalities seen. 3. Tiny calcaneal heel spurs. [facility], , 02/18/2025 3:59 PM
[2025-02-18 17:23] VITALS: BP 149/86; PULSE 86; RESP 18
== END 2025-02-18 17:23 | disposition home or self-care (01) ==
LOC: EC 14:46
DX: S92.352A Displaced fracture of fifth metatarsal bone, left foot, initial encounter for closed fracture (principal); W10.9XXA Fall (on) (from) unspecified stairs and steps, initial encounter; Y93.01 Activity, walking, marching and hiking
CPT/HCPCS: 29515; 99283